=== PATIENT | female | born 1975 ===

== ENCOUNTER 2022-02-20 09:50 | Day surgery (SDC) | payer OTHER ==
[~2022-02-20] VITALS: Ht 162.6 cm; Wt 66.7 kg
[~2022-02-20 09:50] MED LIST: LEVO-T50 MCG PO
== END 2022-02-20 17:35 | disposition home or self-care (01) ==
LOC: CIR.AMB 09:50
PROVIDERS: ATTEND Obstetrics & Gynecology
DX: N84.0 Polyp of corpus uteri (principal); N72 Inflammatory disease of cervix uteri; Z20.822 Contact with and (suspected) exposure to COVID-19; E03.9 Hypothyroidism, unspecified